=== PATIENT | male | born 1990 | race Caucasian/White ===

== ENCOUNTER 2022-03-02 10:00 | Day surgery (SDC) | payer OTHER ==
[~2022-03-02] VITALS: Ht 172.7 cm; Wt 74.0 kg
[2022-03-02 10:30] VITALS: BP 135/82; PULSE 61; TEMP 98
[2022-03-02 12:00] VITALS: BP 116/79; PULSE 59; TEMP 97.8
[2022-03-02 12:15] VITALS: BP 124/85; PULSE 61
[2022-03-02 12:30] VITALS: BP 127/83; PULSE 57
--- NOTE | 2022-03-02 12:55 | NUR ---
1200 PT RETURNED TO BAY 1 VIA CART. TRANSFERRED TO CHAIR WITH RN ASSIST. ALERT AND ORIENTED. MONITORS ATTACHED, INTERVALS AND ALARMS SET. VSS. PT DENIES PAIN OR NAUSEA. FOOD AND DRINK PROVIDED. CALL LIGHT IN REACH. 1215 VSS. PT DENIES DISCOMFORT. TOLERATING FOOD AND DRINK WELL. 1230 VSS. PT DENIES DISCOMFORT. REVIEWED DISCHARGE INSTRUCTIONS AND EDUCATION MATERIAL, ANSWERED ALL QUESTIONS. IV REMOVED WITHOUT COMPLICATIONS. PT ALLOWED TO DRESS. 1255 TRANSFERRED PT VIA WHEELCHAIR TO PERSONAL VEHICLE TO BE DRIVEN HOME BY FRIEND.
== END 2022-03-02 12:55 | disposition home or self-care (01) ==
LOC: SDCO 10:00
DX: K29.50 Unspecified chronic gastritis without bleeding (principal); D12.3 Benign neoplasm of transverse colon; F17.290 Nicotine dependence, other tobacco product, uncomplicated; R19.7 Diarrhea, unspecified; Z87.891 Personal history of nicotine dependence
CPT/HCPCS: J2704; J7120